=== PATIENT | female | born 1950 | race Caucasian/White ===

== ENCOUNTER 2021-10-04 10:01 | Outpatient (CLI) | payer OTHER, SELFPAY ==
[2021-10-04 10:53] LABS: Alanine Aminotransferase 39 U/L (4-35); Albumin Level 4.2 g/dL (3.5-5.1); Alkaline Phosphatase 70 U/L (38-126); Anion Gap 9 mmol/L (8-16); Aspartate Amino Transferase 40 U/L (14-36); Bilirubin,Total 0.8 mg/dL (0.2-1.3); Blood Urea Nitrogen 12 mg/dL (7-17); Calcium 9.8 mg/dL (8.4-10.2); Carbon Dioxide 23 mmol/L (22-30); Chloride 105 mmol/L (98-107); Cholesterol 298 mg/dL (0-200); Estimated Glomerular Filt Rate > 60; Glucose 117 mg/dL (65-110); HDL Direct 65 mg/dL; Potassium 4.3 mmol/L (3.4-5.0); Sodium 137 mmol/L (137-145); Triglycerides 184 mg/dL (<150)
[2021-10-04 11:01] LABS: LDL Cholesterol Direct 188 mg/dL
[2021-10-04 11:10] LABS: Vitamin D 25 Hydroxy 59.4 ng/mL
[2021-10-04 11:38] LABS: Hemoglobin A1C 5.5 % (<5.7)
== END 2021-10-04 10:02 | disposition home or self-care (01) ==
PROVIDERS: PCP Internal Medicine; Visit Provider Nurse Practitioner
DX: E78.2 Mixed hyperlipidemia (principal); E55.9 Vitamin D deficiency, unspecified; R73.02 Impaired glucose tolerance (oral)
CPT/HCPCS: 36415; 80053; 80061; 82306; 83036

== ENCOUNTER 2025-09-19 09:15 | Outpatient (CLI) | payer MEDICARE, MEDICAID, SELFPAY ==
--- OUTSIDE RECORDS SUMMARY | 2025-09-19 10:03 | XMS_ITS | Clinical Summary ---
Author Organization [facility] Address [address] [place] [address] Care Team Providers Care Truck Repair Supervisor Name Role Phone Ovidio Monahan MD Primary Care Provider [phone] Source Comments [facility],non-owned Affiliates and Associated Physician Practices is amultiple site organization consisting of ambulatory clinics and hospital sitesin [place], [place], [place] and [place]. This disclosure is being madepursuant to the Care Everywhere program and may not contain all information available regarding this patient. Last updated 18.[facility] Allergies Active Allergy Reactions Criticality Noted Date Comments Latex Rash Medium 09/01/2024 Medications * Be aware that medications may not be up to date on this document. Alwaysverify current medications with the patient. Eliquis 2.5 MG tablet 10/07/2024 Active ascorbic acid (VITAMIN C) 500 MG tablet Take 1 (one) tablet by mouth once daily Active B Complex Vitamins CAPS Take 1 capsule by mouth once daily Active benztropine (Cogentin) 1 MG tablet Take 1 (one) tablet by mouth once daily 11/07/2024 Active beta carotene 25114 units capsule Take 1 (one) capsule by mouth once daily Active Biotin 1000 MCG Take 1 (one) tablet by mouth once daily Active Docusate Sodium (DSS) 100 MG Take 300 mg by mouth once daily Active DULoxetine (Cymbalta) 60 MG capsule Take 1 (one) capsule by mouth every morning 08/09/2024 Active DULoxetine HCl 40 MG TAKE 1 CAPSULE BY MOUTH EVERY DAY IN THE MORNING 04/28/2024 Active ferrous sulfate EC (Ferrous Sulfate) 324 (65 Fe) MG tablet Take 65 mg by mouth once daily Active ketorolac (Acular) 0.5 % ophthalmic solution 07/14/2024 Active lisinopril (Prinivil; Zestril) 10 MG tablet 09/19/2024 Active magnesium oxide (Mag-Ox) 400 MG tablet Take 1 (one) tablet by mouth 2 times daily Active lisinopril (Prinivil; Zestril) 20 MG tablet Take 1 (one) tablet by mouth 2 times daily 01/17/2024 Active nitrofurantoin monohyd macro crystals (Macrobid) 100 MG capsule Take 1 (one) capsule by mouth 2 times daily 06/15/2024 Active Melatonin 10 MG Take 10 (ten) mg by mouth at bedtime Active ofloxacin (Ocuflox) 0.3 % ophthalmic solution 07/14/2024 Active omeprazole (PriLOSEC) 40 MG capsule Take 1 (one) capsule by mouth once daily 01/10/2025 Active oxyBUTYnin (Ditropan) 5 MG tablet Take 1 (one) tablet by mouth 2 times daily Active oxyCODONE, immediate release, (Roxicodone) 5 MG tablet 05/04/2024 Active oxyCODONE-aceta minophen (Percocet) 5-325 MG tablet Take 1 (one) tablet by mouth every 4 hours as needed 09/30/2024 Active potassium gluconate 595, 99 K, MG PO 595 (99 K) MG tablet Take 99 mg by mouth at bedtime Active prednisoLONE acetate (Pred Forte) 1 % ophthalmic suspension 07/14/2024 Active propranolol (Inderal) 10 MG tablet Take 1 (one) tablet by mouth 2 times daily 12/31/2023 Active QUEtiapine (SEROquel) 25 MG tablet 02/22/2025 Active risperiDONE (RisperDAL) 3 MG tablet Take 1 (one) tablet by mouth Active thiamine (Vitamin B-1) 100 MG tablet Take 2.5 (two and one-half) tablets by mouth once daily Active rosuvastatin (Crestor) 10 MG tablet Take 1 (one) tablet by mouth once daily 01/29/2024 Active Social History Tobacco Use Types Packs/Day Years Used Date Smoking Tobacco: Never Assessed Comments Unknown Sex and Gender Information Value Date Recorded Sex Assigned at Not on file Legal Sex Female 7:42 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 Gender Identity Not on file Sexual Orientation Not on file Plan of Treatment Health Maintenance Due Date Last Done Comments BONE DENSITY TESTING 1950 COLOGUARD (AGES 45-75) - COL ON CA SCREENING 1952 COLON MONITORING 1952 COLONOSCOPY - COLON CA SCREENING 1952 CT COLONOGRAPHY - COLON CA SCREENING 1952 Colorectal Cancer Screening 1952 FIT - COLON CA SCREENING 1952 FLEX SIG - COLON CA SCREENING 1952 MAMMOGRAM 1950 MEDICARE AWV 12 MONTHS 1952 HEPATITIS C SCREENING 11/24/1970 DTAP/TDAP/TD VACCINES (1 - Tdap) 1971 PNEUMOCOCCAL VACCINE 50+ (1 of 1 - PCV) 2002 ZOSTER VACCINE (1 of 2) 2002 Respiratory Syncytial Virus (RSV) Vaccine Pt: or over 60 yrs (1 - Risk 60-74 years 1-dose series) 2012 DEPRESSION SCREENING 11/23/2024 COVID-19 VACCINE (1 - 2023-2 5 season) 2025 INFLUENZA VACCINE (#1) 2025 09/02/2017 HEPATITIS B VACCINE Aged Out No longe r eligible based on patient's age to complete this topic HIB VACCINE Aged Out No longer eligi ble based on patient's age to complete this topic HPV VACCINE Aged Out No longer eligi ble based on patient's age to complete this topic MENINGOCOCCAL (Group B) VACC INE SHARED DECISION-MAKING Aged Out No longer eligibl e based on patient's age to complete this topic MENINGOCOCCAL GROUPS A/C/Y/W VACCINE Aged Out No longer eligible b ased on patient's age to complete this topic Insurance MEDICARE Care Teams Truck Repair Supervisor Relationship Specialty Start Date End Date Ovidio Monahan MD [address] [place] [address] PCP - General 01/08/09
--- OUTSIDE RECORDS SUMMARY | 2025-09-19 10:03 | XMS_ITS | Encounter Summary ---
Author Organization [facility] Address [address] [place] [address] Care Team Providers Care Health And Safety Representative Name Role Phone Unavailable Primary Care Provider Unavailabl e Encounter Details Date Type Department Care Team (Late st Contact Info) Description 10/29/2000 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
--- OUTSIDE RECORDS SUMMARY | 2025-09-19 10:03 | XMS_ITS | Clinical Summary ---
Author Organization [facility] Address [address] [place] [address] Phone Care Team Providers Care Design Assembler Name Role Phone Joselyn Schaefer MD Primary Care Provider + [phone] Frank Crowe MD Unavailable Allergies Active Allergy Reactions Criticality Noted Date Comments Latex Rash Medium 09/01/2024 Medications multivit with minerals/lutein (MULTIVITAMIN 50 PLUS ORAL) Take 1 tablet/capsule by mouth daily 7 Active cyanocobalamin (Vitamin B-12) 1,000 mcg tabletIndicatio ns:Prevention of Vitamin B12 Deficiency Take 5 tablets (5,000 mcg total) by mouth daily 7 Active cholecalciferol (VITAMIN D-3) 5,000 unit capsule Take 1 capsule (5,000 Units total) by mouth nightly 7 Active lisinopriL (PRINIVIL,ZESTR IL) 20 mg tablet Take 1 tablet (20 mg total) by mouth 2 (two) times a day 4 Active propranoloL (INDERAL) 10 mg tabletIndicatio ns:PRESCRIBED BY VAL SCHROEDER FOR ANXIETY STATES Take 1 tablet (10 mg total) by mouth 2 (two) times a day 4 Active rosuvastatin (CRESTOR) 10 mg tablet Take 1 tablet (10 mg total) by mouth daily 4 Active buPROPion SR (WELLBUTRIN SR) 150 mg 12 hr tablet Take 1 tablet (150 mg total) by mouth 2 (two) times a day 4 Active risperiDONE (RisperDAL) 3 mg tabletIndicatio ns:Schizophreni a Take 1 tablet (3 mg total) by mouth nightly at bedtime 4 Active calcium carbonate-vitam in D3 1,500 mg (600 mg elemental)-500 unit capsule Take 2 tablets by mouth nightly Active melatonin 10 mg tablet Take 1 tablet (10 mg total) by mouth nightly Active vitamin B complex capsule Take 1 capsule by mouth daily Active docusate sodium (COLACE) 100 mg capsuleIndicati ons:constipatio n Take 3 capsules (300 mg total) by mouth daily with dinner 4 PM Active magnesium oxide (MAG-OX) 400 mg (241.3 mg elemental magnesium) tabletIndicatio ns:hypomagnesem ia Take 1 tablet (400 mg total) by mouth 2 (two) times a day Active beta carotene 7,500 mcg (25,000 unit) capsule Take 1 capsule (25,000 Units total) by mouth daily with dinner Active thiamine (VITAMIN B1) 100 mg tablet Take 2.5 tablets (250 mg total) by mouth daily Active biotin 1 mg tablet Take 1 tablet (1,000 mcg total) by mouth daily Active ascorbic acid (ascorbic acid with yolanda hips) 500 mg tablet,chewable Take 1 tablet/chew tab (500 mg total) by mouth daily 1000 mg Active oxyBUTYnin (DITROPAN) 5 mg tablet Take 1 tablet (5 mg total) by mouth 2 (two) times a day [address] (CYMBALTA) 60 mg capsule Take 1 capsule (60 mg total) by mouth every morning 4 Active potassium gluconate 595 mg (99 mg) tablet Take 0.1664 tablets (99 mg total) by mouth nightly Active ferrous sulfate ER 324 mg (65 mg iron) EC tabletIndicatio ns:Iron Deficiency Anemia Take 65 mg by mouth daily with breakfast Active oxyCODONE-aceta minophen (PERCOCET) 5-325 mg per tabletIndicatio ns:Pain Take 1 tablet by mouth every 4 (four) hours as needed for pain 40 tablet 4 Active benztropine (COGENTIN) 1 mg tablet Take 1 tablet (1 mg total) by mouth daily 12/16/202 4 Active Active Problems Problem Noted Date Diagnosed Date Arthritis of left knee 09/15/2024 Closed displaced fracture of proximal phalanx of left little finger 04/28/2024 Primary osteoarthritis of left knee 02/05/2024 Malignant neoplasm of 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, estrogen receptor positive 10/28/2018 Cancer Staging:Pathologic stage from 05/03/2013:Stage IA(pT1c, pN0(sn), cM0, G2, ER: Positive, LA: Positive, HER2: Negative, Oncotype DX score: 31) - Signed by Raheel Jansen MD on 11/02/2018 Clinical: Unsigned Immunizations Immunization Administration Dates Next Due Influenza, Unspecified 09/02/2017 Surgical History Surgery Date Site/Laterality Comments BREAST BIOPSY Right MASTECTOMY Right COLONOSCOPY SINUS SURGERY YEARS AGO TONSILLECTOMY as a child ORIF FINGER / THUMB FRACTURE 05/04/2024 OPEN REDUCTION INTERNAL FIXATION - LEFT SMALL FINGER PROXIMAL INTERPHALANGEAL JOINT WITH PERCUTANEOUS PINNING KNEE ARTHROPLASTY 11/23/2016 - 11/22/2017 Right CATARACT EXTRACTION Bilateral ECTOPIC 11/23/1981 - 11/22/1982 JOINT REPLACEMENT 09/15/2024 Left total knee Medical History Medical History Date Comments Hypertension Breast cancer (HCC) right- had c hemo and radiation Depression Hypercholesteremia Osteoarthritis Refusal of blood transfusion s as patient is Hindu NEEDS TO SIGN CONSENT ON DAY OF SURGERY Anxiety SEES VAL TOBIAS INDERAL DAILY GERD (gastroesophageal reflux disease) Urinary incontinence WEARS MANUEL PAD No natural teeth chew foods no i ssues no steak Schizophrenia see notes Abnormal stress ECG 2023 Pre-diabetes Lives alone Fall 07/2024 Dependent on walker for ambulation Fracture, finger 03/2024 left hand Limb alert care status right arm h/o mastectomy Neuropathy History of blood transfusion 1981 had before she was Hindu Uses walker Wears reading eyeglasses Athlete's foot Family History Medical History Relation Name Comments Drug abuse Brother Drug abuse Father Drug abuse Maternal Grandmother Heart disease Mother Relation Name Status Comments Brother Father Maternal Grandmother Mother Social History Tobacco Use Types Packs/Day Years Used Date Smoking Tobacco: Never Smokeless Tobacco: Never Alcohol Use Standard Drinks/Week Comments No 0 (1 standard drink = 0.6 oz pur e alcohol) [facility] Utilities Answer Date Recorded In the past 12 months has th e electric, gas, oil, or water [employer] threatened to shut off services in your home? No 09/15/2024 Social Connection and Isolation Panel Answer Date Recorded In a typical week, how many times do you talk on the phone with family, friends, or neighbors? Three times a week 09/15/2024 How often do you get togethe r with friends or relatives? Three times a week 09/15/2024 How often do you attend chur or latter day services? Never 09/15/2024 Do you belong to any clubs o r organizations such as christianity groups, unions, fraternal or athletic groups, or school groups? No 09/15/2024 How often do you attend meet ings of the clubs or organizations you belong to? Never 09/15/2024 Are you , , di vorced, , never , or living with a partner? 09/15/2024 AUDIT-C Answer Date Recorded Q1: How often do you have a drink containing alcohol? Never 09/15/2024 Q2: How many drinks containi ng alcohol do you have on a typical day when you are drinking? Patient does not drink Q3: How often do you have si x or more drinks on one occasion? Never 09/15/2024 Overall Financial Resource Strain (CARDIA) Answe r Date Recorded How hard is it for you to pa y for the very basics like food, housing, medical care, and heating? Not very hard 09/15/2024 Hunger Vital Sign Answer Date Recorded Within the past 12 months, y ou worried that your food would run out before you got the money to buy more. Never true 09/15/20 24 Within the past 12 months, t he food you bought just didn't last and you didn't have money to get more. Never true 09/15/2024 PRAPARE - Transportation Answer Date Re corded In the past 12 months, has l ack of transportation kept you from medical appointments or from getting medications? No 08/24 In the past 12 months, has l ack of transportation kept you from meetings, work, or from getting things needed for daily living? No 09/15/2024 Housing Stability Vital Sign Answer Maxx e Recorded In the last 12 months, was t here a time when you were not able to pay the mortgage or rent on time? No 09/15/2024 In the past 12 months, how m any times have you moved where you were living? 0 09/15/2024 At any time in the past 12 m [facility], were you homeless or living in a assisted (including now)? No 09/15/2024 Personal Safety Answer Date Recorded Have you ever been in or are you currently in a harmful physical or emotional relationship or is someone making you feel afraid or unsafe? 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 Gender Identity Not on file Sexual Orientation Not on file Occupation Industry Job Start Date Job End Date retired Not on file Not on file Not on file Obstetrics History Last Filed Vital Signs Vital Sign Reading Time Taken Comments Blood Pressure 144/90 09/16/2024 12:08 PM CDT Pulse 72 09/16/2024 12:08 PM CDT Temperature 36.8 C (98.2 F) 09/16/2024 12:08 PM CDT Respiratory Rate 17 09/16/2024 12:08 PM CDT Oxygen Saturation 93% 09/16/2024 12:08 PM CDT Inhaled Oxygen Concentration - - Weight 89.8 kg (198 lb) 12/07/2024 11:59 AM CHRISTIAN SCIENCE NURSE Height 165.1 cm (5' 5) 12/07/2024 11:59 AM CHRISTIAN SCIENCE NURSE Body Mass Index 32.95 12/07/2024 11:59 AM CHRISTIAN SCIENCE NURSE Plan of Treatment Health Maintenance Due Date Last Done Comments Breast Cancer Screening-Mammogram 1952 Colon Cancer Screening-Colonoscopy 1952 Depression Screening 1952 Hepatitis C Screening 1952 Osteoporosis Screening-Bone Density Scan 1952 DTaP/Tdap/Td Vaccine (1 - Tdap) 1963 Hepatitis B Screening 1970 Well Visit 65+ 2017 Pneumococcal vaccine 65+ (2 of 2 - PCV20 or PCV21) 08/02/2020 08/02/2019 Covid-19 Vaccine (3 - 2024-2 6 season) 2025 03/26/2021, 02/26/2021 Influenza Vaccine (#1) 2025 3, 09/19/2020, 08/02/2019, Additional history exists Fall Risk Assessment 09/16/2025 09/16/2024 Zoster Vaccine Completed 11/19/2020, 09/19/2020 Medical Devices Implanted Type Area Java Portal Developer Device Identifier Shelf Expiration Date Model / Serial / Lot Knee Replacement Right: Knee Lens Bilatera l: Eye [employer] Simplex P Radiopaque Full Dose Cement Bone Sterile 6191-1-010 - [id number] Implanted:Qty: 1 on 09/15/2024 by Derick El MD at [facility] Left: Knee [employer] [id number] 09/22/2026 6191-1-010 / / [id number] [employer]/Or tho Montse Ii 13mm 29mm Biconvex Knee Component Patellar Uhmwpe [id number] - [id number] Implanted:Qty: 1 on 09/15/2024 by Derick El MD at [facility] Left: Knee [employer]O rtho [id number] 05/10/2034 [id number] / / [id number] [employer]/Or tho Legion Cemented Posterior Stabilize Knee Left 5n Component [id number] - [id number] Implanted:Qty: 1 on 09/15/2024 by Derick El MD at [facility] Left: Knee [employer] rtho [id number] 05/03/2034 [id number] / / [id number] [employer] Legion 13mm Posterior Stabilized High Flexion Knee 3-4 Insert [id number] - [id number] Implanted:Qty: 1 on 09/15/2024 by Derick El MD at [facility] Left: Knee [employer]o [id number] 11/08/2032 [id number] / / [id number] [employer] Montse Ii Left Knee 3 Baseplate Tibial Titanium Nonporous [id number] - [id number] Implanted:Qty: 1 on 09/15/2024 by Derick El MD at [facility] Left: Knee [employer] r[employer]o [id number] 03/04/2034 [id number] / / [id number] Insurance IDPA [facility] IDPA [facility] MEDICARE ADVANTAGE AETNA [facility] ADVANTRA [facility] MEDICARE Address: [address] [place] [address] Advance Directives For more information, please contact: [phone] Documents on File Type Date Recorded Patient Director Of Instructional Technology Expl anation Power of Traveling Inventory Associate 03/01/2024 10:51 AM Power of Traveling Inventory Associate 03/01/2024 10:50 AM * Full Code (Latest Code Status on File) Date Activated Date Inactivated Comments 09/15/2024 1:14 PM 09/16/2024 9:44 PM Care Teams Design Assembler Relationship Specialty Start Date End Date Joselyn Schaefer MD [address] [place] [id number] PCP - General Emergency Medicine 02/04/24 Frank Crowe MD [address] [place] [id number] Referring Physician Interventional Cardiology 04/28/24
--- OUTSIDE RECORDS SUMMARY | 2025-09-19 10:03 | XMS_ITS ---
Author Organization [facility] Address [address] [place] [address] Phone Care Team Providers Care Primary School Principal Name Role Phone Joselyn Schaefer MD Primary Care Provider + [phone] Frank Crowe MD Unavailable [phone] Active Problems Problem Noted Date Diagnosed Date Arthritis of left knee 09/15/2024 Closed displaced fracture of proximal phalanx of left little finger 04/28/2024 Primary osteoarthritis of left knee 02/05/2024 Malignant neoplasm of 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, estrogen receptor positive 10/28/2018 Cancer Staging:Pathologic stage from 05/03/2013:Stage IA(pT1c, pN0(sn), cM0, G2, ER: Positive, [place]: Positive, HER2: Negative, Oncotype DX score: 31) - Signed by Raheel Jansen MD on 11/02/2018 Clinical: Unsigned Current Treatment and Therapy Plans No current plan information found. Past Treatment and Therapy Plans No past plan information found. Lifetime Dose Tracking * Chemical Lifetime Dose Automatic Entry Manual Entr y Fluoro Time 8.301 minutes 8.301 minutes 0 minutes Air kerma at the reference point (Ka,r) 9.165 mGy 9 .165 mGy 0 mGy DLP 1,095 mGycm 1,095 mGycm 0 mGycm
--- OUTSIDE RECORDS SUMMARY | 2025-09-19 10:03 | XMS_ITS | Clinical Summary ---
Author Organization [facility] Address [address] 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
--- OUTSIDE RECORDS SUMMARY | 2025-09-19 10:03 | XMS_ITS | Clinical Summary ---
Author Organization [facility] Address [address] [place] [address] Phone Care Team Providers Care Vamp Presser Name Role Phone Cristian Mojica DO Primary Care Provider [phone] Allergies No known active allergies Social History Tobacco Use Types Packs/Day Years Used Date Smoking Tobacco: Never Assessed Comments Unknown Sex and Gender Information Value Date Recorded Sex Assigned at Not on file Legal Sex Female 9:12 PM CDT Gender Identity Not on file Sexual Orientation Not on file Last Filed Vital Signs Vital Sign Reading Time Taken Comments Blood Pressure 160/75 09/04/2021 3:45 PM CDT Pulse 81 09/04/2021 3:45 PM CDT Temperature 36.7 C (98.1 F) 09/04/2021 2:21 PM CDT Respiratory Rate 20 09/04/2021 2:21 PM CDT Oxygen Saturation 95% 09/04/2021 3:45 PM CDT Inhaled Oxygen Concentration - - Weight 102.5 kg (226 lb) 09/04/2021 2:21 PM CDT Height 160 cm (5' 3) 09/04/2021 2:21 PM CDT Body Mass Index 40.03 09/04/2021 2:21 PM CDT Plan of Treatment Health Maintenance Due Date Last Done Comments Hepatitis C Virus (HCV) Screening 1950 TdaP Immunization 1950 Cologuard 1997 Colonoscopy 1997 Colorectal Cancer Screening 1997 Immunochemical Fecal Occult Blood 1997 Medicare Initial AWV [id number] 07/24/2004 Pneumococcal Immunization (50+ years) (2 of 2 - PCV20 or PCV21) 08/02/2020 08/02/2019 Influenza Immunization (#1) 07/24/202508/24, 08/02/2019, 10/26/2017, Additional history exists SARS-COV-2 Immunization ( - season) 2025 03/26/2021, 02/26/2021 Respiratory Syncytial Virus (RSV) Immunization (Adult) (1 - 1-dose 75+ series) 2027 Zoster Immunization Completed 11/19/2020, 0 Hepatitis B Immunization Aged Out No longer eligible based on patient's age to complete this topic Human Papillomavirus (HPV) Immunization Aged Out No longer eligible based on patient's age to complete this topic Meningococcal Immunization (ACWY) Aged Out No longer eligible based on patient's age to complete this topic Rotavirus Immunization Aged Out No lo nger eligible based on patient's age to complete this topic Insurance MEDICARE [place]ICAID [place] Care Teams Vamp Presser Relationship Specialty Start Date End Date Cristian Mojica DO [address] [facility] [address] [place] [address] PCP - General Internal Medicine 09/04/21
--- NOTE | 2025-09-19 11:45 | NEURO_ITS ---
Impression: # Complains of numbness of hands. ? # Right ulnar neuropathy across the elbow. ? # Left severe Carpal Tunnel Syndrome. ? # Abnormal needle/EMG exam. Nerve Conduction Studies ?Stim Site NR Peak (ms) P-T Amp (?V) Site1 Site2 Delta-P (ms) Dist (cm) Calvin (m/s) Left Median Anti Sensory (2-3nd Digit) Wrist ? 8.7 19.0 Wrist 2-3nd Digit 8.7 14.0 16 Wrist ? 7.6 5.4 Wrist 2-3nd Digit 8.7 14.0 16 Right Median Anti Sensory (2-3nd Digit) Wrist ? 3.0 26.4 Wrist 2-3nd Digit 3.0 14.0 47 Wrist ? 3.0 52.3 Wrist 2-3nd Digit 3.0 14.0 47 Left Radial Anti Sensory (Base 1st Digit) Wrist ? 2.0 19.1 Wrist Base 1st Digit 2.0 0.0 Right Radial Anti Sensory (Base 1st Digit) Wrist ? 2.0 22.1 Wrist Base 1st Digit 2.0 0.0 Left Ulnar Anti Sensory (5th Digit) Wrist ? 2.3 38.8 Wrist 5th Digit 2.3 14.0 61 Right Ulnar Anti Sensory (5th Digit) Wrist ? 2.4 17.1 Wrist 5th Digit 2.4 14.0 58 ?Stim Site NR Onset (ms) O-P Amp (mV) Site1 Site2 Delta-0 (ms) Dist (cm) Calvin (m/s) Left Median Motor (Abd Poll Brev) Wrist ? 8.2 1.2 Elbow Wrist 3.4 28.0 82 Elbow ? 11.6 0.8 Right Median Motor (Abd Poll Brev) Wrist ? 3.4 1.9 Elbow Wrist 4.7 27.0 57 Elbow ? 8.1 1.7 Left Ulnar Motor (Abd Dig Minimi) Wrist ? 2.4 6.6 A Elbow Wrist 4.7 27.0 57 A Elbow ? 7.1 5.1 B Elbow Wrist 3.9 23.0 59 B Elbow ? 6.3 8.2 Right Ulnar Motor (Abd Dig Minimi) Wrist ? 2.4 2.1 A Elbow Wrist 6.4 30.0 47 A Elbow ? 8.8 1.8 B Elbow Wrist 4.0 21.0 53 B Elbow ? 6.4 0.7 F Wave Studies?NR F-Lat (ms) L-R F-Lat (ms) Left Median (Mrkrs) (Abd Poll Brev) ? 32.76 1.81 Right Median (Mrkrs) (Abd Poll Brev) ? 30.95 1.81 Left Ulnar (Mrkrs) (Abd Dig Min) ? 30.00 1.43 Right Ulnar (Mrkrs) (Abd Dig Min) ? 31.43 1.43 Electromyography ?Side Muscle Nerve Root Ins Act Fibs Amp Dur Recrt Comment Right 1stDorInt Ulnar C8-T1 Nml Nml Decr >12ms +1 Right Ext Indicis Radial (Post Int) C7-8 Nml Nml Nml Nml Nml Right Ext Digitorum Radial (Post Int) C7-8 Nml Nml Nml Nml Nml Right BrachioRad Radial C5-6 Nml Nml Nml Nml Nml Right PronatorTeres Median C6-7 Nml Nml Nml Nml Nml Right Abd Poll Brev Median C8-T1 Nml Nml Nml Nml Nml Right ABD Dig Min Ulnar C8-T1 Nml Nml Decr >12ms +1 Right FlexPolLong Median (Ant Int) C7-8 Nml Nml Nml Nml Nml Right Abd Poll Long Radial (Post Int) C7-8 Nml Nml Nml Nml Nml Left 1stDorInt Ulnar C8-T1 Nml Nml Nml Nml Nml Left Ext Indicis Radial (Post Int) C7-8 Nml Nml Nml Nml Nml Left Ext Digitorum Radial (Post Int) C7-8 Nml Nml Nml Nml Nml Left BrachioRad Radial C5-6 Nml Nml Nml Nml Nml Left PronatorTeres Median C6-7 Nml Nml Nml Nml Nml Left Abd Poll Brev Median C8-T1 Nml Nml Decr >12ms +2 Left ABD Dig Min Ulnar C8-T1 Nml Nml Decr Nml Nml Left FlexPolLong Median (Ant Int) C7-8 Nml Nml Nml Nml Nml Left Abd Poll Long Radial (Post Int) C7-8 Nml Nml Nml Nml Nml
== END 2025-09-19 09:16 | disposition home or self-care (01) ==
LOC: ANHNEURO 09:18
PROVIDERS: PCP Emergency Medicine; Visit Provider Emergency Medicine
DX: G56.02 Carpal tunnel syndrome, left upper limb (principal); G56.21 Lesion of ulnar nerve, right upper limb
CPT/HCPCS: 95886; 95911